=== PATIENT | male | born 1985 | race Hispanic/Latino ===

== ENCOUNTER 2019-05-07 16:03 | Emergency (ER) | payer OTHER ==
[~2019-05-07] VITALS: Ht 172.7 cm; Wt 95.0 kg
[~2019-05-07 16:03] MED LIST: AMOXICILLIN875 MG OR; BACTRIM DS1 TAB OR; FLEXERIL5 M1 PO; LORTAB 5 OR; LYRICA150 MG PO; MEDDOSEPAK PO; NAPROSYN500 MG PO; NO HOME MEDS; PRILOSEC OTC20 MG OR; PROMETHAZINE25 MG OR; TRAMADOL HCL50 MG PO; [UNRECOGNIZED DRUG - REMARK]
[2019-05-07] MEDS ORDERED: PREDNISONE50 MG PO (18:17)
[2019-05-07] MEDS ORDERED: TRAMADOL HYDROC50 MG PO (18:17)
[2019-05-07] MEDS ORDERED: CYCLOBENZAPR5 MG PO (18:17)
[2019-05-07 18:31] VITALS: BP 113/61
== END 2019-05-07 18:31 | disposition home or self-care (01) ==
LOC: ED 16:03
DX: M51.26 Other intervertebral disc displacement, lumbar region (principal); M48.061 Spinal stenosis, lumbar region without neurogenic claudication; F17.210 Nicotine dependence, cigarettes, uncomplicated

== ENCOUNTER 2020-12-17 17:24 | Emergency (ER) | payer OTHER ==
[~2020-12-17] VITALS: Ht 172.7 cm; Wt 91.0 kg
[~2020-12-17 17:24] MED LIST changes: +CYCLOBENZAPR5 MG PO; +PREDNISONE50 MG PO; +TRAMADOL HYDROC50 MG PO
[2020-12-17] MEDS ORDERED: VOLTAREN75 MG PO (19:19)
[2020-12-17] MEDS ORDERED: ORPHENADRINE100 MG PO (19:19)
[2020-12-17 19:38] VITALS: BP 127/72
== END 2020-12-17 19:47 | disposition home or self-care (01) ==
LOC: ED 17:24
DX: M25.551 Pain in right hip (principal); M51.26 Other intervertebral disc displacement, lumbar region; F17.210 Nicotine dependence, cigarettes, uncomplicated

== ENCOUNTER 2021-06-03 09:24 | Emergency (ER) | payer OTHER ==
[~2021-06-03 09:24] MED LIST changes: +ORPHENADRINE100 MG PO; +VOLTAREN75 MG PO
== END 2021-06-03 09:47 | disposition left against medical advice (07) | DRG 951 ==
LOC: ED 09:24 → LWOBS 09:47
DX: Z53.21 Procedure and treatment not carried out due to patient leaving prior to being seen by health care provider (principal)

== ENCOUNTER 2022-11-29 17:57 | Emergency (ER) | payer OTHER ==
[~2022-11-29] VITALS: Ht 172.7 cm; Wt 85.2 kg
[2022-11-29 18:10] VITALS: BP 131/83
[2022-11-29 18:31] VITALS: BP 112/66
[2022-11-29 19:00] VITALS: BP 108/61
[2022-11-29] MEDS ORDERED: NAPROXEN500 MG PO (19:03)
[2022-11-29 19:07] VITALS: BP 108/61
== END 2022-11-29 19:10 | disposition home or self-care (01) ==
LOC: ED 17:57
DX: M25.511 Pain in right shoulder (principal); M54.50 Low back pain, unspecified; G89.29 Other chronic pain; F17.200 Nicotine dependence, unspecified, uncomplicated

== ENCOUNTER 2023-01-06 15:50 | Emergency (ER) | payer OTHER ==
[~2023-01-06] VITALS: Ht 172.7 cm; Wt 75.0 kg
[~2023-01-06 15:50] MED LIST changes: +NAPROXEN500 MG PO
[2023-01-06] MEDS ORDERED: TRAMADOL HYDROC50 M1 PO (17:30)
[2023-01-06] MEDS ORDERED: CEFDINIR300 MG PO (17:30)
[2023-01-06] MEDS ORDERED: BACTRIM DS1 TAB PO (17:30)
[2023-01-06] MEDS ORDERED: NAPROXEN500 MG PO (17:30)
[2023-01-06 17:58] VITALS: BP 101/72
== END 2023-01-06 18:15 | disposition home or self-care (01) ==
LOC: ED 15:50
DX: L02.415 Cutaneous abscess of right lower limb (principal)

== ENCOUNTER 2023-01-18 09:34 | Emergency (ER) | payer OTHER ==
[~2023-01-18] VITALS: Ht 162.6 cm; Wt 79.3 kg
[~2023-01-18 09:34] MED LIST changes: +BACTRIM DS1 TAB PO; +CEFDINIR300 MG PO; +TRAMADOL HYDROC50 M1 PO
[2023-01-18 10:01] VITALS: BP 132/88
[2023-01-18 10:15] VITALS: BP 132/83
[2023-01-18] MEDS ORDERED: NAPROXEN500 MG PO (10:17)
[2023-01-18] MEDS ORDERED: BACTRIM DS1 TAB PO (10:17)
[2023-01-18] MEDS ORDERED: HYDROCO/APAP1 TA9 PO (10:17)
[2023-01-18] MEDS ORDERED: CEFDINIR300 MG PO (10:17)
[2023-01-18 10:23] VITALS: BP 132/83
== END 2023-01-18 10:31 | disposition home or self-care (01) ==
LOC: ED 09:34
DX: L03.115 Cellulitis of right lower limb (principal)

== ENCOUNTER 2024-02-18 03:27 | Emergency (ER) | payer OTHER ==
[~2024-02-18] VITALS: Ht 160 cm; Wt 90.0 kg
[2024-02-18] VITALS (13 sets, daily range): BP systolic 98–125; BP diastolic 60–88
[~2024-02-18 03:27] MED LIST changes: +HYDROCO/APAP1 TA9 PO; +VIBRAMYCIN100 M2 PO
[2024-02-18] MEDS ORDERED: ASPIRIN 81 MG/TAB PO ONE (03:35)
[2024-02-18] MEDS ORDERED: MORPHINE SULFATE 4 MG/ML VIAL IV ONE (03:35)
[2024-02-18] MEDS ORDERED: diazePAM 10 MG/2 ML VIAL IV ONE (03:40)
[2024-02-18 03:49] LABS: BASO% 0.1 % (0-3); EOS% 2.7 % (0-8); HEMATOCRIT 42.8 % (39.0-50.0); HEMOGLOBIN 13.8 g/dl (14.0-18.0); IMMATURE GRANULOCYTES 0.2 % (0.0-5.0); LYMPH% 53.8 % (15-41); MEAN CELL VOLUME 91.8 fL CALC (80.0-100.0); MEAN CORPUSCULAR HGB 29.6 pG CALC (26.0-32.0); MEAN CORPUSCULAR HGB CONC 32.2 g/dL CAL (32.0-36.0); MONO% 6.9 % (2-13); NEUT# 3.48 thou/uL (1.82-7.42); NEUT% 36.3 % (42-76); RED BLOOD COUNT 4.66 mill/uL (4.70-6.10); RED CELL DISTRI WIDTH 12.7 % (11.5-15.5)
[2024-02-18 03:54] LABS: ALBUMIN 4.7 g/dL (3.2-5.0); ALKALINE PHOSPHATASE 72 u/l (38-126); BUN 20 mg/dL (9-20); BUN/CREATININE RATIO 17 (12-20 (CALC)); CARBON DIOXIDE 24 mmol/l (22-30); CHLORIDE 111 mmol/l (95-108); CREATININE 1.2 mg/dL (0.7-1.3); ESTIMATED GFR 78 ML/MIN (>=90 (CALC)); LIPASE 68 u/l (23-300); SODIUM 142 mmol/l (137-146); TOTAL PROTEIN 7.9 g/dL (6.3-8.2)
[2024-02-18 03:57] LABS: ANION GAP 10 (6-22 (CALC)); INTERNATIONAL NORMALIZED RATIO 1.1 RATIO (0.7-1.3); POTASSIUM 3.3 mmol/l (3.5-5.1); SGOT/AST 67 u/l (17-59)
[2024-02-18 03:58] LABS: PROTHROMBIN TIME 10.2 SECONDS (9.0-12.5)
[2024-02-18 04:04] LABS: D-DIMER 0.21 mg/L (0.19-0.60)
== END 2024-02-18 07:58 | disposition home or self-care (01) | DRG 313 ==
LOC: ED 03:27
PROVIDERS: Emergency Medicine
DX: R07.89 Other chest pain (principal); I25.2 Old myocardial infarction